=== PATIENT | female | born 2000 | race African-American/Black ===

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

== ENCOUNTER 2018-01-26 15:36 | Emergency (ER) | payer MEDICAID ==
[~2018-01-26] VITALS: Ht 165.1 cm; Wt 82.0 kg
[~2018-01-26 15:36] MED LIST: ARIP2TAB3 PO
[2018-01-26] MEDS ORDERED: LORAZEPAM 2MG/ML CPJ IM ONE (16:30)
[2018-01-26 16:45] LABS: BASOPHILS % 0.9 % (0.0-2.0); EOSINOPHILS % 1.7 % (0.0-5.0); HEMATOCRIT. 35.5 % (36.0-48.0); MEAN CORPUSCULAR HEMOGLOBIN 29.6 pg (28.0-32.0); MEAN CORPUSCULAR VOLUME 87.2 fL (81.0-99.0); MEAN PLATELET VOLUME 8.2 fl (7.4-10.4); MONOCYTES % 7.3 % (2.0-8.0); NEUTROPHILS % 48.1 % (40.0-76.0); PLATELET 382 x1000/uL (130-400); RED BLOOD CELL COUNT 4.07 mill/uL (4.2-5.4); RED CELL DISTRIBUTION WIDTH 12.8 % (11.6-14.6)
[2018-01-26 16:51] LABS: CHLORIDE 99 mEq/L (98-107)
[2018-01-26 17:00] LABS: HCG SCREEN NEGATIVE
[2018-01-26] MEDS ORDERED: LORAZEPAM 2MG/ML CPJ IM NR (20:15)
[2018-01-27 08:19] LABS: *BENZODIAZEPINES SCREEN URINE NEGATIVE (NEGATIVE)
[2018-01-27 08:20] LABS: *COCAINE SCREEN URINE NEGATIVE (NEGATIVE); CANNABINOID URINE SCREEN NEGATIVE (NEGATIVE); METHADONE URINE SCREEN NEGATIVE (NEGATIVE); OPIATES URINE SCREEN NEGATIVE (NEGATIVE); PHENCYCLIDINE URINE SCREEN NEGATIVE (NEGATIVE)
[2018-01-27 08:21] LABS: *BARBITURATES SCREEN URINE NEGATIVE (NEGATIVE)
[2018-01-27 08:32] LABS: *AMPHETAMINES SCREEN URINE NEGATIVE (NEGATIVE)
[2018-01-27] MEDS ORDERED: LORAZEPAM 2MG/ML CPJ IM ONE ×2 (09:30→18:45)
[2018-01-27 22:15] VITALS: BP 121/71
== END 2018-01-27 23:01 ==
LOC: ER 15:36
DX: F41.9 Anxiety disorder, unspecified (principal); F20.9 Schizophrenia, unspecified; F32.9 Major depressive disorder, single episode, unspecified; E11.9 Type 2 diabetes mellitus without complications; R06.02 Shortness of breath; R00.2 Palpitations; R07.9 Chest pain, unspecified
CPT/HCPCS: 36415; 80053; 80305; 82962; 84484; 84703; 85025; 93005; 96372; 99285; J2060; Z7610